=== PATIENT | female | born 1965 | race Caucasian/White ===

== ENCOUNTER 2017-04-20 10:40 | Inpatient (IN) ==
[2017-04-20] MEDS ORDERED: Levofloxacin 750 MG/150 ML 750 MG/150 ML BAG IVPB ONE (11:12)
[2017-04-20] MEDS ORDERED: 0.9 % Sodium Chloride 1,000 ML IVC ONE (11:12)
--- NOTE | 2017-04-20 11:19 | Emergency Department Note ---
Disposition Clinical Impression: Bacteremia due to Escherichia coli, Pyelonephritis Disposition: Admitted As Inpatient Condition: Fair Time of Disposition: 12:21 Recheck wound or abnormal lab - General Chief Complaint: ED Recheck/Abnormal Lab/Rx Stated Complaint: Blood infection Time Seen by Provider: 04/20/17 11:03 Source: patient Limitations: no limitations Nursing Notes Reviewed: Yes Vital Signs Reviewed: Yes - History of Present Illness HPI Narrative: Mrs. Perez, a 51-year-old female, returns to the emergency department after we called her at home for a positive blood culture for Escherichia coli. Patient is having urinary tract infection which she is attentive to self treat. She was seen in this department yesterday with pyelonephritis and discharged home in stable condition with Levaquin. She feels better today and is surprised that we called her at home. Her right-sided pain is resolved and she is otherwise asymptomatic at this time. ROS: Positive: As above, headache Negative: Fever, chills, abdominal pain, flank pain, changes in bowel or bladder , chest pains, shortness of breath - Related Data Previous Rx's Medication Instructions Recorded Levofloxacin [Levaquin] 750 mg PO DAILY #5 tablet 04/19/17 Allergies Allergy/AdvReac Type Severity Reaction Status Date / Time No Known Allergies Allergy Verified 04/19/17 13:06 All systems ED: reviewed and negative except as stated. Review of Systems: As Per HPI Past Medical History - Past Medical History Medical history: Reports: no medical history Psychiatric history: Reports: no psych history - Social History Smoking Status: Never smoker Smokeless Tobacco Status: No Alcohol use: Reports: none Drug use: Reports: none Physical Exam Vital Signs Reviewed-patient is tachycardic General: Patient is alert, oriented, and in no acute distress. HEENT: No facial asymmetry. Head is normocephalic and atraumatic. Oral mucosa moist. Trachea midline. Cardiovascular: Heart regular rate and rhythm without clicks, rubs, gallops, or murmurs. No JVD. PMI nondisplaced. Respiratory: Symmetric chest rise with good respiratory effort. Bilateral breath sounds are clear without wheezing, crackles, or rhonchi. Abdomen: Bowel sounds present normoactive x-4 quadrants. Abdomen is soft, nondistended, and nontender. No organomegaly noted. Musculoskeletal: Continuously moving all extremities. Neuro: GCS 15. Skin: Warm, dry. Psych: Patient's affect is appropriate for situation. - General Limitations: no limitations General appearance: alert, in no apparent distress Course Course Narrative: Patient is well appearing and nontoxic. Vital signs remarkable only for mild tachycardia; patient was a bit and states she is always tachycardic. She actually feels better today than she did yesterday despite the Escherichia coli bacteremia. We will admit the patient for bacteremia secondary to pyelonephritis. Septic workup with empiric antibiotics. I discussed in detail with the patient our concern, the source of her Escherichia coli is relates to UTI. She is agreeable to admission. I discussed the patient with the admitting hospitalist , , who agrees to accept the patient for continued evaluation and management. Vital Signs Temperature 98.6 F 04/20/17 10:58 Pulse Rate 119 04/20/17 10:58 Respiratory Rate 18 04/20/17 10:58 Blood Pressure 140/91 04/20/17 10:58 O2 Sat by Pulse Oximetry 99 04/20/17 10:58 Temperature 98.6 F 04/20/17 10:58 Pulse Rate 105 04/20/17 12:11 Respiratory Rate 11 04/20/17 12:11 Blood Pressure 117/78 04/20/17 12:11 O2 Sat by Pulse Oximetry 98 04/20/17 12:11 Oxygen Delivery Oxygen Delivery Room Air Recheck wound or abnormal lab - Medical Records Medical records reviewed: Yes I reviewed the patient's medical records. - Lab Data Lab results reviewed: Yes I reviewed the patient's lab results. Result diagrams: 04/20/17 11:28 04/20/17 11:28 Lab Results 04/20/17 04/20/17 04/20/17 Range/Units 11:28 11:28 11:28 WBC 7.3 (4.3-11.1) K/mcL RBC 3.73 L (3.82-4.97) M/mcL Hgb 11.5 D (11.5-15.4) g/dL Hct 33.5 L (35.3-44.9) % MCV 89.8 (83.0-100.0) fL MCH 30.8 (28.0-33.3) pg MCHC 34.3 (31.6-35.5) g/dL RDW 11.8 (11.5-14.5) % Plt Count 236 (140-400) K/mcL MPV 10.8 (9.4-12.4) fL Immature Gran % 0.3 (0-4) % Seg Neutrophils % 67.0 % Lymphocytes % 22.0 % Monocytes % 9.6 % Eosinophils % 0.8 % Basophils % 0.3 % Neutrophils # 4.9 (1.6-8.9) K/mcL Lymphocytes # 1.6 (0.6-4.6) K/mcL Monocytes # 0.7 (0.0-1.3) K/mcL Eosinophils # 0.1 (0.0-0.6) K/mcL Basophils # 0.0 (0.0-0.2) K/mcL PT 15.0 H (9.4-12.1) Seconds INR 1.4 APTT 25.9 L (26.0-36.0) Seconds Sodium 139 (136-145) mEq/L Potassium 3.5 (3.5-4.5) mEq/L Chloride 106 (98-109) mEq/L Carbon Dioxide 23 (19-29) mEq/L BUN 10 (7-20) mg/dL Creatinine 0.67 (0.57-1.11) mg/dL Est GFR ( Amer) > 60 (> 60) Est GFR (Non-Af Amer) > 60 (> 60) BUN/Creatinine Ratio 15 (6-26) Glucose 102 H (70-99) mg/dL Calculated Osmolality 287 (280-300) Lactic Acid (0.5-2.2) mmol/L Calcium 8.7 (8.6-10.8) mg/dL Phosphorus 1.9 L (2.3-4.7) mg/dL Magnesium 2.0 (1.6-2.6) mg/dL Total Bilirubin 0.8 (0.2-1.2) mg/dL Direct Bilirubin 0.3 (0.0-0.5) mg/dL Indirect Bilirubin 0.5 (0.0-1.2) mg/dL AST 13 (5-34) Units/L ALT 16 (0-55) Units/L Alkaline Phosphatase 78 (38-126) Units/L Troponin I (0-0.03) ng/mL Serum Total Protein 6.8 (6.0-8.3) g/dL Albumin 2.9 L D (3.5-5.0) g/dL Globulin 3.9 H (2.4-3.5) g/dL Albumin/Globulin Ratio 0.7 L (1.1-2.2) 04/20/17 04/20/17 Range/Units 11:28 11:28 WBC (4.3-11.1) K/mcL RBC (3.82-4.97) M/mcL Hgb (11.5-15.4) g/dL Hct (35.3-44.9) % MCV (83.0-100.0) fL MCH (28.0-33.3) pg MCHC (31.6-35.5) g/dL RDW (11.5-14.5) % Plt Count (140-400) K/mcL MPV (9.4-12.4) fL Immature Gran % (0-4) % Seg Neutrophils % % Lymphocytes % % Monocytes % % Eosinophils % % Basophils % % Neutrophils # (1.6-8.9) K/mcL Lymphocytes # (0.6-4.6) K/mcL Monocytes # (0.0-1.3) K/mcL Eosinophils # (0.0-0.6) K/mcL Basophils # (0.0-0.2) K/mcL PT (9.4-12.1) Seconds INR APTT (26.0-36.0) Seconds Sodium (136-145) mEq/L Potassium (3.5-4.5) mEq/L Chloride (98-109) mEq/L Carbon Dioxide (19-29) mEq/L BUN (7-20) mg/dL Creatinine (0.57-1.11) mg/dL Est GFR ( Amer) (> 60) Est GFR (Non-Af Amer) (> 60) BUN/Creatinine Ratio (6-26) Glucose (70-99) mg/dL Calculated Osmolality (280-300) Lactic Acid 0.9 (0.5-2.2) mmol/L Calcium (8.6-10.8) mg/dL Phosphorus (2.3-4.7) mg/dL Magnesium (1.6-2.6) mg/dL Total Bilirubin (0.2-1.2) mg/dL Direct Bilirubin (0.0-0.5) mg/dL Indirect Bilirubin (0.0-1.2) mg/dL AST (5-34) Units/L ALT (0-55) Units/L Alkaline Phosphatase (38-126) Units/L Troponin I 0.00 (0-0.03) ng/mL Serum Total Protein (6.0-8.3) g/dL Albumin (3.5-5.0) g/dL Globulin (2.4-3.5) g/dL Albumin/Globulin Ratio (1.1-2.2) - Radiology Data Radiology results reviewed: Yes I reviewed the patient's radiology results. - EKG Data EKG attestation: Yes I reviewed and interpreted this EKG. EKG results narrative: EKG dated 04/20/17 at 11:36 interpreted as sinus tachycardia with a rate of 103. Collaterals appear 1:30, QRS 88, QT/QTC 3:30/39. Normal axis. Nonspecific ST-T changes. Compared to previous dated 05/11/2013 showing no acute ischemic changes of comparison. Attestation Statement - Attestation Attestation: Patient was seen with resident physician. I reviewed the history, physical, assessment and plan, and agree with the findings. I also personally evaluated this patient and had [id number] time with this patient. 51-year-old female presents to the emergency department at our request after blood cultures came back positive for Escherichia coli. Patient was seen by myself yesterday in the emergency Department was diagnosed with pyelonephritis. Hemodynamically she was stable did not meet sepsis criteria was given a dose of IV antibiotics and sent home on oral antibiotics. She is also having abdominal pain at that time. The pain has since resolved, patient said she is actually feeling quite well except for being a bit fatigued. She was getting ready to go shopping when she got our phone call encouraging her to come to the ED for evaluation and treatment. The issues that she got positive blood cultures. We haroon them yesterday to ensure that she did not have a systemic disease, unfortunately they seem to indicate that she does. On examination vital signs patient is tachycardic which she was not yesterday. Remainder vital signs are stable. ENT is unremarkable. Heart and lungs are normal. Abdomen is soft there is no tenderness to palpation. Extremities are unremarkable. Neurologically intact. ED course will start the sepsis protocol workup to recheck the labs and compared to yesterday. We will also restart IV antibiotics Levaquin. I discussed the case with the hospitalist service they agreed to admit the patient for septicemia. Patient was comfortable with that plan as well. Agree with the resident physician assessment and plan.
--- NOTE | 2017-04-20 11:43 | Internal Med History&Physical ---
Date of Encounter: 04/20/17 Time of Encounter: 11:40 Assessment and Plan (1) Bacteremia, escherichia coli Current visit: Yes Status: Acute 51/female Has a right-sided pyelonephritis. Blood culture positive for Escherichia coli. Sensitivity to antibiotics is pending at this time. Patient was started yesterday on levofloxacin. Plan: Admit as inpatient: Reason for inpatient admission is to give intravenous antibiotics and close monitoring of the sepsis. Intravenous levofloxacin 750 mg every 24 hours. Patient's BUN/creatinine is within normal limits. We will repeat blood culture. Monitoring of urine analysis. Likely duration of antibiotics 10 days. Intravenous antibiotics duration depends on blood culture results. I examined this patient in room #3 in the emergency department. Patient's daughter is at bedside. I have explained the plan to the patient and her daughter. (2) Acute pyelonephritis Current visit: No Status: Acute Right-sided pyelonephritis is likely source for the Escherichia coli bacteremia. See plan above (3) Hypertension Current visit: Yes Status: Acute Her blood pressure is stable. Qualifiers: Hypertension type: essential hypertension Qualified Code(s): I10 - Essential (primary) hypertension (4) DVT prophylaxis Current visit: Yes Status: Acute Heparin Medical decision making: This patient has a moderate to severe risk of worsening in spite of being on appropriate medication due to the underlying complex comorbid conditions. Internal Medicine - H&P: HPI Chief complaint: Abnormal labs Admitted From: Emergency Dept Plans for Post Hospital Care: Home History of present illness: PCP: Dr Ton Sanchez Brief past medical history: Hypertension, mild obesity. History of present medical illness: Patient was experiencing difficulty in micturition and right-sided flank pain for last 5 days. Patient works at [employer] in the [employer] system. Patient noted that she had a persistent elevated temperature on Friday and . Patient was evaluated by urgent care on Friday and was sent to this hospital for further evaluation. Patient was in the emergency room yesterday where she was evaluated by emergency room physician recommended CT scan of the abdomen. CT scan of the abdomen showed right-sided pyelonephritis. In view of the stable condition of the patient levofloxacin was prescribed and patient was sent home with a follow-up appointment to the primary care. Patient's blood culture was positive for Escherichia coli and patient received a call from this hospital to come back for further evaluation and management. Workup in the emergency room: Patient was seen by emergency room physician and repeat blood cultures were drawn. Patient was started on IV levofloxacin. Reason for admission: Escherichia coli bacteremia/right-sided pyelonephritis for intravenous antibiotics. Family history: Noncontributory Past Med Surg Social Fam HX - Past Medical History Medical history: no medical history Psychiatric history: no psych history - Social History Smoking Status: Never smoker Smokeless Tobacco Status: No Alcohol use: none Drug use: none Internal Medicine - H&P: Meds Levofloxacin [Levaquin] 750 mg PO DAILY #5 tablet 04/19/17 [Rx] 3 Allergy/AdvReac Type Severity Reaction Status Date / Time No Known Allergies Allergy Verified 04/19/17 13:06 All Systems PM: A 10-system review of systems was performed and is negative for pertinent findings except as documented above in the HPI. - Constitutional Constitutional: no chills, no fever(s), no night sweats - EENT Eyes: no change in vision, no discharge, no pain, no photophobia Ears: no ear discharge, no ear pain, no tinnitus Nose, mouth and throat: no dysphagia, no nasal discharge, no neck pain, no sore throat - Cardiovascular Cardiovascular ROS IM: no chest pain, no diaphoresis, no dyspnea, no lightheadedness, no palpitations, no syncope - Respiratory Respiratory: no cough, no dyspnea, no wheezing, no excessive phlegm production - Gastrointestinal Gastrointestinal: abdominal pain, no diarrhea, no hematemesis, no hematochezia, no melena, no nausea, no vomiting - Genitourinary Genitourinary: change in urinary stream, dysuria, flank pain, no hematuria - Musculoskeletal Musculoskeletal ROS IM: no numbness, no tingling - Integumentary Integumentary IM: no rash, no unusual bruising - Neurological Neurological ROS: no confusion, no convulsions, no focal weakness, no numbness, no tingling, no tremor(s) - Hematologic/Lymphatic Hematologic/Lymphatic: no easy bruising - Constitutional Vitals: Temp Pulse Resp BP Pulse Ox 98.6 F 110 16 140/87 96 04/20/17 10:58 04/20/17 11:14 04/20/17 11:14 04/20/17 11:14 04/20/17 11:14 General appearance: Present: A&O X 3, pleasant, no acute distress, answers questions appropriately - Head Head exam: Present: atraumatic, normocephalic - Eye Eye exam: Present: PERRL, conjuntiva pink, sclera anicteric Pupils: Present: PERRL - Neck Neck exam general surgery: Present: supple, trachea midline. Absent: lymphadenopathy - Respiratory Respiratory exam: Present: CTAB. Absent: accessory muscle use, rales, rhonchi, wheezes - Cardiovascular Cardiovascular exam: Present: RRR, +S1, +S2. Absent: diastolic murmur, gallop, rubs, systolic murmur - GI/Abdominal GI/Abdominal exam: Present: normal bowel sounds, soft, no peritoneal signs. Absent: distended, tenderness - Extremities Exam Extremities exam: Present: warm, radial pulses palpable and symmetrical. Absent : calf tenderness, cyanotic, pedal edema - Neurological Exam Neurological exam: Present: CN II-XII intact, oriented X3, no focal deficits. Absent: pronater drift, facial droop, speech deficit - Skin Skin exam: Present: dry, intact
[2017-04-20] MEDS ORDERED: Naloxone 0.4 MG/ML INJ IVP PRN (11:49)
[2017-04-20 11:51] LABS: Basophils % 0.3 %; Eosinophils # 0.1 K/mcL (0.0-0.6); Eosinophils % 0.8 %; Hematocrit 33.5 % (35.3-44.9); Immature Granulocytes % 0.3 % (0-4); Lymphocytes # 1.6 K/mcL (0.6-4.6); Mean Corpuscular HGB Conc 34.3 g/dL (31.6-35.5); Mean Corpuscular Hemoglobin 30.8 pg (28.0-33.3); Mean Corpuscular Volume 89.8 fL (83.0-100.0); Mean Platelet Volume 10.8 fL (9.4-12.4); Monocytes # 0.7 K/mcL (0.0-1.3); Monocytes % 9.6 %; Neutrophils # 4.9 K/mcL (1.6-8.9); Platelet Count 236 K/mcL (140-400); Red Blood Count 3.73 M/mcL (3.82-4.97); Red Cell Distribution Width 11.8 % (11.5-14.5)
[2017-04-20 11:53] LABS: Hemoglobin 11.5 g/dL (11.5-15.4)
[2017-04-20 11:55] LABS: INR 1.4
[2017-04-20 11:58] LABS: Activated Partial Thrombo Time 25.9 Seconds (26.0-36.0)
[2017-04-20 12:06] LABS: Alanine Aminotransferase 16 Units/L (0-55); Albumin 2.9 g/dL (3.5-5.0); Albumin/Globulin Ratio 0.7 (1.1-2.2); Alkaline Phosphatase 78 Units/L (38-126); Aspartate Amino Transferase 13 Units/L (5-34); BUN/Creatinine Ratio 15 (6-26); Bilirubin,Direct 0.3 mg/dL (0.0-0.5); Bilirubin,Indirect 0.5 mg/dL (0.0-1.2); Bilirubin,Total 0.8 mg/dL (0.2-1.2); Blood Urea Nitrogen 10 mg/dL (7-20); Calcium 8.7 mg/dL (8.6-10.8); Carbon Dioxide 23 mEq/L (19-29); Chloride 106 mEq/L (98-109); Globulin 3.9 g/dL (2.4-3.5); Glucose 102 mg/dL (70-99); Osmolality,Calculated 287 (280-300); Phosphorous 1.9 mg/dL (2.3-4.7); Potassium 3.5 mEq/L (3.5-4.5); Sodium 139 mEq/L (136-145); Total Protein 6.8 g/dL (6.0-8.3); eGFR For African Americans > 60 (> 60); eGFR For Non-African Americans > 60 (> 60)
[2017-04-20] MEDS: 0.9 % Sodium Chloride 1,000 ML IVC SCH (14:32)
[2017-04-20] MEDS: Acetaminophen 325 MG TABLET PO PRN ×2 (14:47→22:24)
[2017-04-21] MEDS: 0.9 % Sodium Chloride 1,000 ML IVC SCH (04:16)
[2017-04-21 04:55] LABS: Basophils % 0.3 %; Eosinophils # 0.1 K/mcL (0.0-0.6); Eosinophils % 1.3 %; Hematocrit 31.6 % (35.3-44.9); Hemoglobin 10.5 g/dL (11.5-15.4); Immature Granulocytes % 0.5 % (0-4); Lymphocytes # 2.1 K/mcL (0.6-4.6); Lymphocytes % 33.8 %; Mean Corpuscular HGB Conc 33.2 g/dL (31.6-35.5); Mean Corpuscular Hemoglobin 30.6 pg (28.0-33.3); Mean Corpuscular Volume 92.1 fL (83.0-100.0); Mean Platelet Volume 10.6 fL (9.4-12.4); Monocytes # 0.6 K/mcL (0.0-1.3); Neutrophils # 3.4 K/mcL (1.6-8.9); Nucleated Red Blood Cells 0.3 /100 WBC (0); Platelet Count 247 K/mcL (140-400); Red Blood Count 3.43 M/mcL (3.82-4.97); Red Cell Distribution Width 11.9 % (11.5-14.5); Segmented Neutrophils % 54.1 %
[2017-04-21 05:38] LABS: Alanine Aminotransferase 15 Units/L (0-55); Albumin 2.8 g/dL (3.5-5.0); Albumin/Globulin Ratio 0.8 (1.1-2.2); Alkaline Phosphatase 68 Units/L (38-126); Aspartate Amino Transferase 12 Units/L (5-34); BUN/Creatinine Ratio 13 (6-26); Bilirubin,Total 0.3 mg/dL (0.2-1.2); Blood Urea Nitrogen 9 mg/dL (7-20); Calcium 8.5 mg/dL (8.6-10.8); Carbon Dioxide 21 mEq/L (19-29); Chloride 110 mEq/L (98-109); Chol/HDL Ratio 4.6 (0-4.9); Cholesterol 153 mg/dL (< 200); Globulin 3.6 g/dL (2.4-3.5); Glucose 114 mg/dL (70-99); HDL Cholesterol 33 mg/dL (40-59); LDL Cholesterol,Calculated 100 mg/dL (0-99); Magnesium 1.9 mg/dL (1.6-2.6); Osmolality,Calculated 290 (280-300); Potassium 3.8 mEq/L (3.5-4.5); Sodium 140 mEq/L (136-145); Total Protein 6.4 g/dL (6.0-8.3); Triglycerides 101 mg/dL (< 150); eGFR For African Americans > 60 (> 60); eGFR For Non-African Americans > 60 (> 60)
[2017-04-21] MEDS: Acetaminophen 325 MG TABLET PO PRN (09:42)
[2017-04-21] MEDS: Levofloxacin 750 MG/150 ML 750 MG/150 ML BAG IVPB SCH (09:43)
--- NOTE | 2017-04-21 12:17 | Internal Med Progress Note ---
Date of Encounter: 04/21/17 Time of Encounter: 12:15 - Assessment and plan (1) Gram-negative bacteremia Current Visit: Yes Status: Acute (2) Hypertension Current Visit: Yes Status: Acute Qualifiers: Hypertension type: essential hypertension Qualified Code(s): I10 - Essential (primary) hypertension (3) Pyelonephritis Current Visit: Yes Status: Acute - Subjective Interval history: Admitted for right-sided pyelonephritis and gram-negative bacteremia. Culture and sensitivity are pending. Patient has been started on IV Rocephin. She is afebrile and white cell count is normal. Follow CBC and cultures. Ultrasound renal pending to rule out obstruction. Potassium will be corrected and recheck tomorrow - Constitutional Vitals: Temp Pulse Resp BP Pulse Ox 97.4 F L 96 16 121/81 97 04/21/17 10:56 04/21/17 10:56 04/21/17 10:56 04/21/17 10:56 04/21/17 10:56 General appearance: Present: A&O X 3, pleasant, no acute distress, answers questions appropriately - Head Head exam: Present: atraumatic, normocephalic - Eye Eye exam: Present: PERRL, conjuntiva pink, sclera anicteric Pupils: Present: PERRL - Neck Neck exam general surgery: Present: supple, trachea midline. Absent: lymphadenopathy - Respiratory Respiratory exam: Present: CTAB. Absent: accessory muscle use, rales, rhonchi, wheezes - Cardiovascular Cardiovascular exam: Present: RRR, +S1, +S2. Absent: diastolic murmur, gallop, rubs, systolic murmur - GI/Abdominal GI/Abdominal exam: Present: normal bowel sounds, soft, no peritoneal signs. Absent: distended, tenderness Additional comments: Right CVA tenderness - Extremities Exam Extremities exam: Present: warm, radial pulses palpable and symmetrical. Absent : calf tenderness, cyanotic, pedal edema - Neurological Exam Neurological exam: Present: CN II-XII intact, oriented X3, no focal deficits. Absent: pronater drift, facial droop, speech deficit - Skin Skin exam: Present: dry, intact Internal Medicine: Result - Labs CBC & Chem 7: 04/21/17 04:33 04/21/17 04:33 Labs: Short CBC 04/21/17 Range/Units 04:33 WBC 6.2 (4.3-11.1) K/mcL Hgb 10.5 L (11.5-15.4) g/dL Hct 31.6 L (35.3-44.9) % Plt Count 247 (140-400) K/mcL Neutrophils # 3.4 (1.6-8.9) K/mcL BMP 04/21/17 04:33 Sodium 140 Potassium 3.8 Chloride 110 H Carbon Dioxide 21 BUN 9 Creatinine 0.71 Glucose 114 H Calcium 8.5 L Liver Function 04/21/17 Range/Units 04:33 Total Bilirubin 0.3 (0.2-1.2) mg/dL AST 12 (5-34) Units/L ALT 15 (0-55) Units/L Alkaline Phosphatase 68 (38-126) Units/L Albumin 2.8 L (3.5-5.0) g/dL - ABG Interpretation ABG results: PT/INR, D-dimer PT 15.0 Seconds (9.4-12.1) H 04/20/17 11:28 Consult Discharge Plan - Plan Referrals: Ton Sanchez MD [Primary Care Provider] -
--- NOTE | 2017-04-21 15:05 | Electrocardiograph Report ---
[place] [id number] Test Date: 2017-04-20 Pat Name: Jes Perez Department: 103 Room: 2A71 Gender: F [employer]ulatory Product Manager: : [id number] Requested By: Anastacio Bowden Order Number: [id number] Reading MD: Gaetano Dsouza MD Measurements Intervals [place] Rate: 103 P: 47 [place]: 130 QRS: 34 QRSD: 88 T: 13 QT: 330 QTc: 389 Interpretive Statements SINUS TACHYCARDIA Electronically Signed On 04-21-2017 15:03:26 EST by Gaetano Dsouza MD
[2017-04-22] MEDS: Levofloxacin 750 MG/150 ML 750 MG/150 ML BAG IVPB SCH (07:22)
[2017-04-22 07:23] VITALS: BP 108/75
--- NOTE | 2017-04-22 09:57 | Discharge Summary ---
Date of Encounter: 04/22/17 Time of Encounter: 09:55 - Discharge Diagnosis (1) Acute pyelonephritis Priority: Primary Status: Acute (2) Hypertension Priority: Secondary Status: Chronic Qualifiers: Hypertension type: essential hypertension Qualified Code(s): I10 - Essential (primary) hypertension (3) Bacteremia, escherichia coli Priority: Primary Status: Acute - Discharge Medications Prescriptions: Levofloxacin [Levaquin] 750 mg PO DAILY 10 Days tablet Home Medications: BuPROPion [Wellbutrin] 75 mg PO DAILY 04/20/17 [History] Cholecalciferol (D-3) [Vitamin D] 1,000 unit PO DAILY 04/20/17 [History] FLUoxetine HCl [Prozac] 40 mg PO DAILY 04/20/17 [History] Lisinopril [Zestril] 5 mg PO DAILY 04/20/17 [History] Ranitidine HCl [Acid Stunner And Shackler] 150 mg PO DAILY 04/20/17 [History] Levofloxacin [Levaquin] 750 mg PO DAILY 10 Days tablet 04/22/17 [Rx] Allergies/Adverse Reactions: 3 Allergy/AdvReac Type Severity Reaction Status Date / Time No Known Allergies Allergy Verified 04/19/17 13:06 Date of admission: 04/20/17 11:49 Primary care physician: Ton Sanchez MD Discharging clinician: Bhavana Wong Anticipated date of discharge: 04/22/17 - Patient Status Disposition: Home, Self-Care Condition: Good Functional capacity at discharge: independent ambulation Overall status at discharge: patient is back to baseline - Discharge Instructions Follow Up With: Ton Sanchez MD [Primary Care Provider] - Additional Instructions: F/up with PCP in 1-2 weeks - Diet and Activity Activity: resume usual activities as tolerated Diet: advance to your usual diet, low salt diet Hospital course: Ms. Perez is a 51 year old female with the above medical problems, admitted with severe right flank and lower abdominal pain. Patient was noted to have right-sided pyelonephritis on CT abdomen/pelvis. She was started on empiric IV antibiotics, IV hydration and supportive care. Initial blood and urine cultures grew Escherichia coli, resistant to ampicillin. Repeat blood cultures remained negative. Patient remains hemodynamically stable, doing much better today, tolerates oral diet with improvement in pain. She is medically stable for discharge with oral antibiotics. - Time Spent with Patient Total time spent providing and/or coordinating discharge services: Greater than 30 minutes (40 min) - Constitutional Vitals: Temp Pulse Resp BP Pulse Ox 98.7 F 95 13 108/75 97 04/22/17 07:20 04/22/17 07:20 04/22/17 07:20 04/22/17 07:20 04/22/17 07:20 General appearance: Present: A&O X 3, answers questions appropriately - Respiratory Respiratory exam: Present: CTAB. Absent: accessory muscle use, rales, rhonchi, wheezes - Cardiovascular Cardiovascular exam: Present: RRR, +S1, +S2. Absent: diastolic murmur, gallop, rubs, systolic murmur
== END 2017-04-22 10:40 | disposition home or self-care (01) | DRG 690 ==
LOC: 2ANU 10:40 → EMEROO 10:40 → SUATTDRO 11:49 → 2ANU 13:17
PROVIDERS: ADMIT Internal Medicine; ATTEND Internal Medicine